=== PATIENT | male | born 1990 | race Caucasian/White ===

== ENCOUNTER 2018-01-02 14:21 | Outpatient (RCR) | payer OTHER | END 2018-01-04 14:17 | LOC: WSOH 14:21 | DX: S96.111A Strain of muscle and tendon of long extensor muscle of toe at ankle and foot level, right foot, initial encounter (principal); X50.0XXA Overexertion from strenuous movement or load, initial encounter; Y99.0 Civilian activity done for income or pay ==

== ENCOUNTER 2019-04-27 16:23 | Emergency (ER) | payer OTHER ==
[~2019-04-27] VITALS: Ht 182.9 cm; Wt 77.7 kg
[2019-04-27 16:33] VITALS: BP 137/77; PULSE 79; TEMP 98.5
[2019-04-27] MEDS ORDERED: CLEOCIN HCL300 MG PO (16:54)
[2019-04-27] MEDS ORDERED: NORCO 325 MG-51 TAB PO (16:54)
[2019-04-27] MEDS ORDERED: PERCOCET 325 MG1 TA2 PO (17:20)
[2019-04-27] MEDS ORDERED: ZOFRAN 4MG T4 MG/TAB PO (17:58)
== END 2019-04-27 18:02 | disposition home or self-care (01) ==
LOC: COL.ER 16:23
DX: K02.9 Dental caries, unspecified (principal)

== ENCOUNTER 2021-04-28 16:17 | Emergency (ER) | payer BC ==
[~2021-04-28] VITALS: Ht 185.4 cm; Wt 81.8 kg
[~2021-04-28 16:17] MED LIST: CLEOCIN HCL300 MG PO; NORCO 325 MG-51 TAB PO; PERCOCET 325 MG1 TA2 PO; ZOFRAN 4MG T4 MG/TAB PO
[2021-04-28 16:22] VITALS: TEMP 99
[2021-04-28 17:07] LABS: COLLECTION METHOD CLEAN CATCH
[2021-04-28 17:20] LABS: BASO # 0.1 (0.0-0.2); BASO % 0.6 % (0.0-2.0); EOS # 0.1 (0.0-0.7); EOS % 1.1 % (0-4.0); GRAN # 4.7 (1.4-6.5); GRAN % 58.7 % (42.2-75.2); HEMATOCRIT 45.3 % (42.0-52.0); HEMOGLOBIN 15.7 g/dl (13.5-18.0); LYMPH # 2.4 (1.2-3.4); LYMPH % 30.3 % (20.0-51.0); MEAN CELL VOLUME 91 fl (80.0-100.0); MEAN CORPUSCULAR HEMOGLOBIN 32 pg (27.0-31.0); MEAN CORPUSCULAR HGB CONC 35 g/dl (33.0-37.0); MEAN PLATELET VOLUME 11.2 fl (7.4-10.4); MONO # 0.7 (0.1-0.6); PLATELET COUNT 299 K/mm3 (130-400); RED BLOOD COUNT 4.99 M/mm3 (4.20-5.60)
[2021-04-28 17:39] LABS: ALBUMIN 5.1 gm/dL (3.5-5.0); BILIRUBIN,TOTAL 0.5 mg/dL (0.0-1.0); CALCIUM 9.9 mg/dL (8.4-10.2); CREATININE, serum 0.98 (0.66-1.25); POTASSIUM 3.9 mmol/L (3.4-5.0); TOTAL PROTEIN 9.2 gm/dL (6.4-8.2)
[2021-04-28 18:06] LABS: AMORPHOUS CRYSTAL Present /uL; MUCOUS Present /lpf; PH 6 (5-8); SQUAMOUS EPITHELIAL 0-2 /hpf; URINE APPEARANCE Hazy; URINE BACTERIA None Seen /hpf; URINE BILIRUBIN Negative (NEGATIVE); URINE BLOOD 1+ (NEGATIVE); URINE COLOR Yellow; URINE GLUCOSE Negative (NEGATIVE); URINE KETONE Negative (NEGATIVE); URINE LEUKOCYTE ESTERASE Negative (NEGATIVE); URINE NITRATE Negative (NEGATIVE); URINE PROTEIN(semi-quant) Negative (NEGATIVE); URINE UROBILINOGEN Negative (NEGATIVE)
[2021-04-28] MEDS ORDERED: PRILOSEC 20MG20 MG PO (19:00)
[2021-04-28 19:15] VITALS: BP 119/80; PULSE 77
== END 2021-04-28 19:19 | disposition home or self-care (01) ==
LOC: COL.ER 16:17
PROVIDERS: Nurse Practitioner
DX: K62.5 Hemorrhage of anus and rectum (principal); K62.89 Other specified diseases of anus and rectum

== ENCOUNTER → 2021-11-01 | Outpatient (CLI) | payer BC ==
[~2021-11-01] MED LIST changes: +PRILOSEC 20MG20 MG PO
== END ==
LOC: COL.RAD 09:43
DX: M47.812 Spondylosis without myelopathy or radiculopathy, cervical region (principal)

== ENCOUNTER 2024-08-27 16:44 | Emergency (ER) | payer OTHER ==
[~2024-08-27] VITALS: Ht 182.9 cm; Wt 82.7 kg
[2024-08-27 16:54] VITALS: TEMP 98.4
[2024-08-27] MEDS ORDERED: Ondansetron 4 MG/2 ML VIAL IV ONE ×2 (19:00→19:45)
[2024-08-27] MEDS ORDERED: LR 1,000 ML IV ONE (19:00)
[2024-08-27] MEDS ORDERED: Morphine 4 MG/ML VIAL IV ONE (19:45)
[2024-08-27 19:58] LABS: COLLECTION METHOD CLEAN CATCH
[2024-08-27 20:15] LABS: BASO # 0.1 K/mm3 (0.0-0.2); BASO % 0.8 % (0.0-2.0); EOS # 0.2 K/mm3 (0.0-0.7); EOS % 1.3 % (0.0-4.0); GRAN # 7.4 K/mm3 (1.4-6.5); GRAN % 61.5 % (42.2-75.2); HEMATOCRIT 45.6 % (42.0-52.0); HEMOGLOBIN 15.9 g/dl (13.5-18.0); LYMPH # 3.2 K/mm3 (1.2-3.4); LYMPH % 26.6 % (20.0-51.0); MEAN CELL VOLUME 92 fl (80.0-100.0); MEAN CORPUSCULAR HEMOGLOBIN 32 pg (27-31); MEAN CORPUSCULAR HGB CONC 35 g/dl (33.0-37.0); MEAN PLATELET VOLUME 11.2 fl (7.4-10.4); MONO # 1.1 K/mm3 (0.1-0.6); MONO % 9.5 % (1.7-9.3); PLATELET COUNT 290 K/mm3 (130-400); RED BLOOD COUNT 4.98 M/mm3 (4.20-5.60); REDCELL DISTRIBUTION WIDTH-CV 11.9 % (11.5-14.5)
[2024-08-27 20:21] LABS: ALBUMIN 4.6 g/dL (3.5-5.0); BILIRUBIN,TOTAL 0.7 mg/dL (0.2-1.2); C-REACTIVE PROTEIN 0.33 mg/dL (0.00-0.50); CALCIUM 9.8 mg/dL (8.4-10.2); TOTAL PROTEIN 8.3 g/dl (6.2-8.1)
[2024-08-27 20:22] LABS: PH 5.5 (5.0-8.5); URINE APPEARANCE CLEAR (CLEAR/HAZY); URINE BLOOD 1+ (NEGATIVE); URINE COLOR YELLOW (YELLOW); URINE GLUCOSE NEGATIVE (NEGATIVE); URINE KETONE TRACE (NEGATIVE); URINE NITRATE NEGATIVE (NEGATIVE); URINE PROTEIN(semi-quant) NEGATIVE (NEGATIVE)
[2024-08-27 20:42] LABS: MUCOUS PRESENT (NOT PRESENT); SQUAMOUS EPITHELIAL 0-2 /hpf (0-10); URINE BACTERIA NONE SEEN /hpf (NONE SEEN)
[2024-08-27] MEDS ORDERED: Iohexol 300 - 100 ML VIAL IV ONE (21:13)
[2024-08-27] MEDS ORDERED: NS 100 ML IV ONE (21:13)
[2024-08-27 22:30] VITALS: BP 127/95; PULSE 70
== END 2024-08-27 22:30 | disposition home or self-care (01) ==
LOC: COL.ER 16:44
PROVIDERS: Family Medicine
DX: R10.32 Left lower quadrant pain (principal); K62.5 Hemorrhage of anus and rectum
CPT/HCPCS: J7120; Q9967